=== PATIENT | female | born 1950 | race Caucasian/White ===

== ENCOUNTER 2018-08-09 10:21 | Day surgery (SDC) | payer MEDICARE, OTHER ==
[~2018-08-09] VITALS: Ht 160 cm; Wt 74.1 kg
[~2018-08-09 10:21] MED LIST: AMIT10 PO; Amlodipine Besyl5 MG PO; BIOTIN1 MG PO; CALCAVITDA; CLIMARA1 EACH TOP; Coreg Cr10 MG PO; ESTRTP VAG; Exforge 5-1601 EACH PO; IBUP800 PO; Imitrex50 MG PO; LEVSOD75 PO; LEVSOD88 PO; LORA.5 PO; Lovastatin10 MG PO; Lovastatin20 MG PO; UBID100 PO; VIBERZI75 MG PO; VITAMIN D35000 UNIT PO; ZEBUTAL 50-3251 EACH PO; ZOLP6.25 PO; [UNRECOGNIZED DRUG - OTHER] PO
[2018-08-09] MEDS ORDERED: AMLO10 PO (11:11)
--- NOTE | 2018-08-09 13:29 | NUR ---
08/09/18 1329 Berto Mascorro IN STEP DOWN PT C/O 10/05 LOWER ABDOMINAL PAIN/CRAMPING. DR ONEAL NOTIFIED. DR ONEAL EXPLAINS TO PT HER COLON WAS "VERY TIGHT" D/T TO LESIONS FROM PREVIOUS SURGERIES, DR ONEAL STATES THIS IS THE REASON FOR THE PAIN & THAT PAIN SHOULD IMPROVE AFTER TODAY. PT AND SPOUSE STATE AN UNDERSTANDING. NO ORDER RECEIVED FROM DR ONEAL AT THIS TIME. OK TO DISCHARGE PER DR ONEAL.
== END 2018-08-09 13:36 | disposition home or self-care (01) ==
LOC: ORSCSDS 10:21
PROVIDERS: Internal Medicine Gastroenterology
PROC: 0DBM8ZX Excision of Descending Colon, Via Natural or Artificial Opening Endoscopic, Diagnostic (ICD-10-PCS; principal; 2018-08-09 11:45)
DX: Z12.11 Encounter for screening for malignant neoplasm of colon (principal); K63.5 Polyp of colon; K63.89 Other specified diseases of intestine; D12.3 Benign neoplasm of transverse colon; K57.30 Diverticulosis of large intestine without perforation or abscess without bleeding; K64.8 Other hemorrhoids; Z86.010 Personal history of colon polyps; I10 Essential (primary) hypertension; E03.9 Hypothyroidism, unspecified; K21.9 Gastro-esophageal reflux disease without esophagitis; Z79.899 Other long term (current) drug therapy
CPT/HCPCS: 88305; J2704; J7120

== ENCOUNTER 2019-05-25 07:08 | Day surgery (SDC) | payer MEDICARE, OTHER ==
[~2019-05-25] VITALS: Ht 162.6 cm; Wt 74.2 kg
[~2019-05-25 07:08] MED LIST changes: +AMLO10 PO; +SYNTHROID88 MCG PO
== END 2019-05-25 09:25 | disposition home or self-care (01) ==
LOC: ORSCSDS 07:08
PROVIDERS: Internal Medicine Gastroenterology
PROC: 0D757ZZ Dilation of Esophagus, Via Natural or Artificial Opening (ICD-10-PCS; 2019-05-25)
PROC: 0DB68ZX Excision of Stomach, Via Natural or Artificial Opening Endoscopic, Diagnostic (ICD-10-PCS; principal; 2019-05-25 08:30)
PROC: 0DB58ZX Excision of Esophagus, Via Natural or Artificial Opening Endoscopic, Diagnostic (ICD-10-PCS; principal; 2019-05-25 08:30)
DX: R13.10 Dysphagia, unspecified (principal); K26.9 Duodenal ulcer, unspecified as acute or chronic, without hemorrhage or perforation; K25.9 Gastric ulcer, unspecified as acute or chronic, without hemorrhage or perforation; K22.2 Esophageal obstruction; I10 Essential (primary) hypertension; E03.9 Hypothyroidism, unspecified; K21.9 Gastro-esophageal reflux disease without esophagitis; K58.9 Irritable bowel syndrome, unspecified; Z79.899 Other long term (current) drug therapy
CPT/HCPCS: 88305; 88341; 88342; J2405; J2704; J7120

== ENCOUNTER 2021-08-12 08:35 | Day surgery (SDC) | payer MEDICARE, OTHER ==
[~2021-08-12] VITALS: Ht 160 cm; Wt 70.9 kg
[~2021-08-12 08:35] MED LIST changes: +AMIT25 PO; +EUTHYROX88 MCG PO; +NITR.4SL SL; +OMEP20ER PO
[2021-08-12] MEDS ORDERED: TOLT2ER (09:24)
[2021-08-12] MEDS ORDERED: VIBERZI75 MG (09:24)
== END 2021-08-12 10:59 | disposition home or self-care (01) ==
LOC: ORSCSDS 08:35
PROVIDERS: Internal Medicine Gastroenterology
PROC: 0DBH8ZX Excision of Cecum, Via Natural or Artificial Opening Endoscopic, Diagnostic (ICD-10-PCS; principal; 2021-08-12 10:00)
DX: Z12.11 Encounter for screening for malignant neoplasm of colon (principal); Z86.010 Personal history of colon polyps; D12.0 Benign neoplasm of cecum; K57.30 Diverticulosis of large intestine without perforation or abscess without bleeding; K64.8 Other hemorrhoids; Z79.899 Other long term (current) drug therapy
CPT/HCPCS: 88305; J2704